=== PATIENT | female | born 1995 | race Caucasian/White ===

== ENCOUNTER 2021-03-11 20:02 | Emergency (ER) | payer SELFPAY ==
[~2021-03-11] VITALS: Ht 160 cm; Wt 54.4 kg
[2021-03-11 20:19] VITALS: BP 110/61
--- NOTE | 2021-03-11 20:20 | NUR ---
26 YO F BIBA FOR C/O SOB. PER EMS, PT HAD L SIDED WHEEZING, X2 ALBUTEROL TX GIVEN EN ROUTE. PT NOW CLEAR BILATERALLY ON 2 L NC. AAOX4, ANXIOUS, SCREAMING, AND CRYING @ BEDSIDE. PER EMS PT WAS HANDCUFFED AND WAS THEN RELEASED D/T PT BECOMING SOB. OFFICER PETTY RELEASED PT ON CITATION. WILL UPDATE ERMD AX: NONE RX: DENIES LMP: 02/23/21
[2021-03-11] MEDS ORDERED: LORazepam 1 MG TAB PO ONE (20:25)
--- NOTE | 2021-03-11 20:25 | NUR ---
DR CREWS @ BEDSIDE
--- NOTE | 2021-03-11 20:44 | NUR ---
Patient discharged with v/s stable. Written and verbal after care instructions given and explained to parent/guardian. Parent/Guardian verbalized understanding. All questions addressed prior to discharge. Advised to follow up with PMD.
--- NOTE | 2021-03-11 20:44 | NUR ---
IV removed, catheter intact and site benign. Applied folded 4x4 gauze and tape to stop bleeding.
[2021-03-11 20:49] VITALS: BP 105/71
== END 2021-03-11 20:48 | disposition home or self-care (01) ==
LOC: MED 20:02
DX: F41.9 Anxiety disorder, unspecified (principal); F17.210 Nicotine dependence, cigarettes, uncomplicated
CPT/HCPCS: 99281